=== PATIENT | male | born 1950 | race Two or more races ===

== ENCOUNTER → 2016-09-05 | Outpatient (CLI) | payer MEDICARE, OTHER ==
[~2016-09-05] MED LIST: ASPIRIN-LOW81 MG ORAL; CARAFATE1 G1 ORAL; DOXAZOSIN MESYLA1 MG ORAL; FLUTICASONE PRO16 G1 NASAL; LIPITOR20 MG ORAL; LISINOPRIL20 MG ORAL; LORATADINE5 MG/5 M4 PO; METOPROLOL SUC100 MG ORAL; MONTELUKAST SOD10 MG ORAL; NAPROXEN500 M2 ORAL; NORVASC10 MG ORAL; SPIRIVA18 MCG INH; TRIAMTERENE-HC1 EAC7 ORAL; TRIBENZOR 40-11 EAC1 ORAL; UNKNOWN BP MED; VENTOLIN HFA18 GM INH; VITAMIN D250000 UNI1 ORAL; vit d
[2016-09-05 16:37] VITALS: BP 124/63
--- NOTE | 2016-09-05 21:38 | Consultation ---
DATE OF CONSULTATION: 09/05/2016 CHIEF COMPLAINT: Anemia stool OB positive. HISTORY OF PRESENT ILLNESS: A pleasant 66-year-old [place]an male with a history of asthma, hypertension, and hypercholesterolemia who was referred to us for evaluation of anemia and stool OB positive. PAST MEDICAL HISTORY: 1. Asthma 2. Hypoglycemia. PAST SURGICAL HISTORY: Appendectomy and hernia repair. MEDICATIONS: Please see medication reconciliation list. FAMILY HISTORY: Noncontributory. SOCIAL HISTORY: The patient smokes four cigarettes a day. The patient with drinks socially. No IV drug abuse. ALLERGIES: No known drug allergy. MEDICATIONS: Please see medication reconciliation list. PHYSICAL EXAMINATION: VITAL SIGNS: Temperature 97.9, pulse is 66, respirations 20, and blood pressure is 124/63. HEENT: Normocephalic and atraumatic. Sclerae anicteric. NECK: Supple. No evidence of lymphadenopathy. CARDIOVASCULAR: Regular rate and rhythm. Plus S1 and S2. LUNGS: Clear to auscultation bilaterally. ABDOMEN: Positive bowel sounds. Soft and nontender. No rebound. No guarding. No peritoneal sign. EXTREMITIES: No cyanosis. No clubbing. No edema. LABORATORY DATA: Hemoglobin was around 11. ASSESSMENT AND PLAN: This is a 66-year-old male with a 10-pound weight loss and anemia stool OB positive. No prior history of colonoscopy for last 10 years. We will plan to do endoscopy and colonoscopy. The patient was given a prep and instruction and we will schedule him in a week to 10 days. I want to thank, Dr. Bearden for this kind referral. Ru Carnes M.D. DR: OFE JOB#: [id number] CC:
== END | disposition home or self-care (01) ==
LOC: PAN 15:03
DX: D64.9 Anemia, unspecified (principal); J45.909 Unspecified asthma, uncomplicated; E16.2 Hypoglycemia, unspecified; Z90.89 Acquired absence of other organs; I10 Essential (primary) hypertension; F17.210 Nicotine dependence, cigarettes, uncomplicated
CPT/HCPCS: 99201

== ENCOUNTER → 2016-09-20 | Day surgery (SDC) | payer MEDICARE, MEDICAID ==
[2016-09-20] VITALS (7 sets, daily range): BP systolic 94–160; BP diastolic 50–76
[~2016-09-20] VITALS: Ht 182.9 cm; Wt 66.2 kg
[~2016-09-20] MED LIST changes: +Alfentanil 2ml Inj ONE; +Atropine Inj 1mg/10ml Syr IV PRN; +DiphenhydrAMINE 50mg/ml Inj IVP PRN; +Hydromorphone 0.5mg/0.5ml inj IVP PRN; +Ketorolac 30mg Inj IV PRN; +Ketorolac 60mg Inj IV PRN; +LORazepam Inj 2mg/ml 1ml IV PRN; +LR 1000ml 1,000 ML IVLG SCH; +Labetalol 5mg/ml 20ml vial IV PRN; +Meperidine 25mg/ml Inj IV PRN; +Metoclopramide 10mg/2ml Inj IVP PRN; +Midazolam 2mg/2ml Inj IVP PRN; +Norco 5mg/325mg tab ORAL PRN; +Norco 7.5mg/325mg tab ORAL PRN; +Oxycodone/Acetaminophen 5-325 ORAL PRN; +fentaNYL 100 mcg/2 mL IV PRN
--- NOTE | 2016-09-20 08:48 | Short Stay Surgery H&P ---
History of Present Illness History of Present Illness Chief Complaint see recent dictation HPI Jameson Alvarez is a 66 year old male who was admitted on for Anemia,Weight Loss Patient History Allergies: Coded Allergies: NO KNOWN ALLERGIES (Verified Allergy, 05/14/13) PAST MEDICAL HISTORY: Past Surgeries: Social History: Medication History Scheduled Albuterol Sulfate (Ventolin Hfa), 2 PUFFS INH EVERY 6 HOURS, (Reported) Aspirin (Aspirin EC), 81 MG ORAL DAILY, (Reported) Atorvastatin Calcium* (Lipitor*), 20 MG ORAL BEDTIME, (Reported) Doxazosin Mesylate* (Doxazosin Mesylate*), 1 MG ORAL QHS, (Reported) Ergocalciferol (Vitamin D2)* (Vitamin D*), 50,000 UNIT ORAL ONCE A WEEK, ( Reported) Fluticasone Propionate* (Fluticasone Propionate*), 2 SPRAY NASAL BID, (Reported) Metoprolol Succinate* (Metoprolol Succinate*), 100 MG ORAL DAILY, (Reported) Montelukast Sodium* (Montelukast Sodium*), 10 MG ORAL DAILY, (Reported) Olmesartan Med/Amlodipine/Hctz 40-10-25MG (Tribenzor 40-10-25 Mg Tablet), 1 TAB ORAL DAILY, (Reported) Tiotropium [place]* (Spiriva*), 2 PUFF INH DAILY, (Reported) Discontinued Medications Loratadine (Loratadine), 10 MG PO DAILY, (Reported) Discontinued Reason: Pt stopped taking med Physical Exam Vital Signs Last Vital Signs Date Time Temp Pulse Resp B/P Pulse Ox O2 Delivery O2 Flow Rate FiO2 09/20/16 07:35 98.1 55 16 146/69 97 Room Air Plan Attestation Are the patient's medical conditions optimized for surgery? CODY GARCIA Sep 20, 2016 08:48
--- NOTE | 2016-09-20 08:48 | Pre-Procedure Note/Attestation ---
Pre-Procedure Note/Attestation Complete Prior to Procedure Planned Procedure: not applicable Procedure Narrative: egd/colon Indications for Procedure Pre-Operative Diagnosis: wt loss Attestation I attest that I discussed the nature of the procedure; its benefits; risks and complications; and alternatives (and the risks and benefits of such alternatives ), prior to the procedure, with the patient (or the patient's legal business representative). I attest that, if there was a reasonable possibility of needing a blood transfusion, the patient (or the patient's legal business representative) was given the [facility] standardized written summary, pursuant to the [place] Blood Safety Act ([place] Health and Safety Code # 1645, as amended). I attest that I re-evaluated the patient just prior to the surgery and that there has been no change in the patient's H&P, except as documented below: CODY GARCIA Sep 20, 2016 08:48
--- NOTE | 2016-09-20 08:53 | Anethesia Preoperative Eval ---
Anesthesia Pre-op PMH/ROS General Date of Evaluation: Sep 20, 2016 Time of Evaluation: 08:44 Anesthesiologist: Avtar ASA Score: ASA 3 Mallampati Score Class I : Soft palate, uvula, fauces, pillars visible Class II: Soft palate, uvula, fauces visible Class III: Soft palate, base of uvula visible Class IV: Only hard plate visible Mallampati Classification: Class III Surgeon: Deyvi Diagnosis: Abd Pain Surgical Procedure: EGD/Colonoscopy Anesthesia History: none Social History: current smoker Family History: no anesthesia problems Allergies: Coded Allergies: NO KNOWN ALLERGIES (Verified Allergy, 05/14/13) Medications: see eMAR Past Medical History Cardiovascular: Reports: CAD, HTN, other - HL Pulmonary: Reports: COPD, asthma PSxH Narrative: Hernia Repair Anesthesia Pre-op Phys. Exam Physician Exam Last Vital Signs Date Time Temp Pulse Resp B/P Pulse Ox O2 Delivery O2 Flow Rate FiO2 09/20/16 07:35 98.1 55 16 146/69 97 Room Air Constitutional: NAD Neurologic: CN 2-12 intact Cardiovascular: RRR Respiratory: CTA Gastrointestinal: S/NT/ND Airway Exam Mallampati Score: Class III MO: limited ROM: limited Teeth: intact Anesthesia Pre-op A/P Risk Assessment & Plan Assessment: ASA 3 Plan: GA Status Change Before Surgery: Roddy Morin MD Sep 20, 2016 08:53
--- NOTE | 2016-09-20 09:14 | Immediate Post-Op Evaluation ---
Immediate Post-Op Evalulation Immediate Post-Op Evalulation Procedure: EGD/Colonoscopy Date of Evaluation: Sep 20, 2016 Time of Evaluation: 09:42 IV Fluids: 500 Blood Products: 0 Estimated Blood Loss: 1 Urinary Output: 0 Blood Pressure Systolic: 94 Blood Pressure Diastolic: 50 Pulse Rate: 50 Respiratory Rate: 16 O2 Sat by Pulse Oximetry: 99 Temperature (Fahrenheit): 97.4 Pain Score (1-10): 1 Nausea: No Vomiting: No Complications 0 Patient Status: awake, reacts, patent, none Hydration Status: adequate Roddy Nova MD Sep 20, 2016 09:14
--- NOTE | 2016-09-20 09:15 | 48 Hour Post Anesthesia Eval ---
Post Anesthesia Evaluation Procedure: EGD/Colonoscopy Date of Evaluation: Sep 20, 2016 Time of Evaluation: 11:54 Blood Pressure Systolic: 134 0: 78 Pulse Rate: 61 Respiratory Rate: 18 Temperature (Fahrenheit): 98.4 O2 Sat by Pulse Oximetry: 96 Airway: patent Nausea: No Vomiting: No Pain Intensity: 1 Hydration Status: adequate Cardiopulmonary Status: Stable Mental Status/LOC: patient returned to baseline Follow-up Care/Observations: 0 Post-Anesthesia Complications: 0 Follow-up care needed: ready to discharge Roddy Nova MD Sep 20, 2016 09:15
--- NOTE | 2016-09-20 09:32 | Endoscopy Procedure Note ---
Endoscopy Procedure Note Indication for Procedure: anemia, stool ob positive Procedures Performed: EGD, colonoscopy Operative Findings/Diagnosis: 3 polyps Specimen: yes Pt Tolerated Procedure Well: Yes Estimated Blood Loss: none Anesthesiologist: maccay Anesthesia: MAC Implant(s) used?: No 50 yrs or older w/o bx or poly: No 10yrs. F/U not recommended: Yes If not recommended, why?: Above average risk 10 yrs. F/U needed: Yes 18 years or older w/prev. colo: No CODY GARCIA Sep 20, 2016 09:32
--- NOTE | 2016-09-20 18:18 | Procedure Note ---
DATE OF PROCEDURE: 09/20/2016 SURGEON: Ru Carnes M.D. REFERRING PHYSICIAN: . PROCEDURE: Upper endoscopy with biopsy and colonoscopy with biopsy. ANESTHESIOLOGIST: Roddy Nova M.D. INSTRUMENT: Olympus adult flexible upper endoscope and colonoscope. INDICATIONS: 1. Anemia. 2. Stool OB positive. 3. Screening colonoscopy. REASON FOR PROCEDURE: The procedure, risks, benefits, and possible consequences, including hemorrhage, aspiration, perforation and infection, and alternative treatments, were explained to the patient/legal guardian by Dr. Ru Carnes and the patient/legal guardian understood and accepted these risks. DESCRIPTION OF PROCEDURE: After informed consent was obtained and the patient was adequately sedated, Olympus upper endoscope was advanced from the mouth into the second portion of the duodenum and retroflexion was performed in the stomach. The patient had diffuse gastritis. Random biopsy from antrum was obtained to rule out H. pylori infection, otherwise, the rest of the upper endoscopic examination is grossly within normal limits. The patient also had mild duodenitis. At this time, the upper endoscope was retrieved and colonoscopy was started. First rectal exam was performed, which shows positive for internal hemorrhoids. Then, the scope was advanced from rectum into the cecum documented by appendiceal orifice, ileocecal valve, and right upper quadrant palpation. Quality of prep was good. The patient had three diminutive polyps, one in the rectum, one in the sigmoid, and one in the transverse colon, all removed with the cold biopsy forceps technique. There was one or two diverticula throughout the colon. Retroflexion of rectum showed evidence of internal hemorrhoids. The patient tolerated the procedure without any complication. SUMMARY OF FINDINGS: 1. Inlet patch in the proximal esophagus. 2. Gastritis, status post biopsy. 3. Mild duodenitis. 4. Internal hemorrhoids. 5. Three colonic polyps removed. 6. Scattered diverticulosis. RECOMMENDATIONS: Follow up biopsy results and treat accordingly. I want to thank, , for this kind referral. Ru Carnes M.D. DR: OBDULIO JOB#: [id number] CC:
--- NOTE | 2016-09-25 16:23 | Cardiology Report ---
APPROVED REPORT EKG Measurement Heart [id number] [id number] [id number] [id number] Sinus bradycardia Left axis deviation Minimal voltage criteria for LVH, may be normal variant Abnormal ECG
== END | disposition home or self-care (01) ==
LOC: GAS 07:25
DX: Z12.11 Encounter for screening for malignant neoplasm of colon (principal); K62.1 Rectal polyp; D12.3 Benign neoplasm of transverse colon; D12.5 Benign neoplasm of sigmoid colon; D64.9 Anemia, unspecified; R19.5 Other fecal abnormalities; K29.50 Unspecified chronic gastritis without bleeding; K29.80 Duodenitis without bleeding; I25.10 Atherosclerotic heart disease of native coronary artery without angina pectoris; I10 Essential (primary) hypertension; E78.5 Hyperlipidemia, unspecified; J44.9 Chronic obstructive pulmonary disease, unspecified; F17.200 Nicotine dependence, unspecified, uncomplicated; Z79.82 Long term (current) use of aspirin
CPT/HCPCS: 43239; 45380; 93005; J3490; 94003; 94150

== ENCOUNTER → 2016-10-10 | Outpatient (CLI) | payer MEDICARE, MEDICAID ==
[~2016-10-10] MED LIST changes: -Alfentanil 2ml Inj ONE; -Atropine Inj 1mg/10ml Syr IV PRN; -DiphenhydrAMINE 50mg/ml Inj IVP PRN; -Hydromorphone 0.5mg/0.5ml inj IVP PRN; -Ketorolac 30mg Inj IV PRN; -Ketorolac 60mg Inj IV PRN; -LORazepam Inj 2mg/ml 1ml IV PRN; -LR 1000ml 1,000 ML IVLG SCH; -Labetalol 5mg/ml 20ml vial IV PRN; -Meperidine 25mg/ml Inj IV PRN; -Metoclopramide 10mg/2ml Inj IVP PRN; -Midazolam 2mg/2ml Inj IVP PRN; -Norco 5mg/325mg tab ORAL PRN; -Norco 7.5mg/325mg tab ORAL PRN; -Oxycodone/Acetaminophen 5-325 ORAL PRN; -fentaNYL 100 mcg/2 mL IV PRN
[2016-10-10 15:28] VITALS: BP 141/70
--- NOTE | 2016-10-10 16:05 | GI Progress Note ---
Assessment/Plan Problems: (1) Anemia ICD Codes: D64.9 - Anemia, unspecified SNOMED: 138246719 (2) Colonic polyp ICD Codes: K63.5 - Polyp of colon SNOMED: 57238964 (3) Encounter for diagnostic endoscopy ICD Codes: Z01.818 - Encounter for other preprocedural examination SNOMED: 918656687, 594647423 (4) Gastritis ICD Codes: K29.70 - Gastritis, unspecified, without bleeding SNOMED: 1145006 (5) Hemorrhoids ICD Codes: K64.9 - Unspecified hemorrhoids SNOMED: 21897283 Status: stable Status Narrative Seen with Dr. Carnes. Assessment/Plan EGD/colonoscopy reviewed with patient. SBCE scheduled for 10/17/16. - CLD + [employer] prep instructions given. fu biopsies >> unremarkable Subjective Subjective weight loss Objective Last 24 Hour Vital Signs Date Time Temp Pulse Resp B/P Pulse Ox O2 Delivery O2 Flow Rate FiO2 10/10/16 15:28 98.3 60 141/70 General Appearance: no apparent distress, alert Cardiovascular: normal rate Respiratory/Chest: normal breath sounds, no respiratory distress Abdominal Exam: normal bowel sounds, non tender, soft Extremities: normal range of motion Objective Endoscopy Procedure Note Indication for Procedure: anemia, stool ob positive Procedures Performed: EGD, colonoscopy Operative Findings/Diagnosis: 3 polyps CODY CARNES - Sep 20, 2016 09:32 Diane Rg N.P. Oct 10, 2016 16:05
== END | disposition home or self-care (01) ==
LOC: PAN 15:05
DX: Z01.818 Encounter for other preprocedural examination (principal); D64.9 Anemia, unspecified; K63.5 Polyp of colon; K29.70 Gastritis, unspecified, without bleeding; K64.9 Unspecified hemorrhoids; R63.4 Abnormal weight loss
CPT/HCPCS: 99212

== ENCOUNTER 2017-06-02 12:53 | Outpatient (CLI) | payer MEDICARE, MEDICAID ==
--- NOTE | 2017-06-02 13:26 | GI Progress Note ---
Assessment/Plan Problems: (1) Esophageal thickening ICD Codes: K22.8 - Other specified diseases of esophagus SNOMED: 64500825 (2) Encounter for diagnostic endoscopy ICD Codes: Z01.818 - Encounter for other preprocedural examination SNOMED: 334534314, 877934501 (3) Anemia ICD Codes: D64.9 - Anemia, unspecified SNOMED: 866391216 (4) Gastritis ICD Codes: K29.70 - Gastritis, unspecified, without bleeding SNOMED: 8152600 Status: stable Status Narrative Seen with Dr. Carnes. Assessment/Plan H. Pylori Negative Gastritis colonic polyp x 3 CT >> esophageal wall thickening EGD scheduled 06/06/17. - NPO @ [facility] day prior procedure explained. Subjective Gastrointestinal/Abdominal: Reports: abdominal pain Objective T 98.1 BP 152/71 P 62 94 RA General Appearance: WD/WN, no apparent distress, alert Cardiovascular: normal rate Respiratory/Chest: normal breath sounds, no respiratory distress Abdominal Exam: normal bowel sounds, non tender, soft Extremities: normal range of motion, non-tender Diane Rg N.PUsama Jun 02, 2017 13:26
[2017-06-02 15:11] VITALS: BP 152/71
== END 2017-06-02 13:25 | disposition home or self-care (01) ==
LOC: PAN 12:53
DX: Z01.818 Encounter for other preprocedural examination (principal); K22.8 Other specified diseases of esophagus; D64.9 Anemia, unspecified; K29.70 Gastritis, unspecified, without bleeding
CPT/HCPCS: 99212

== ENCOUNTER 2017-06-06 07:35 | Day surgery (SDC) | payer MEDICARE, OTHER ==
[2017-06-06] VITALS (7 sets, daily range): BP systolic 132–151; BP diastolic 64–77
[~2017-06-06] VITALS: Ht 167.6 cm; Wt 70.8 kg
--- NOTE | 2017-06-06 07:00 | Anethesia Preoperative Eval ---
Anesthesia Pre-op PMH/ROS General Date of Evaluation: Jun 06, 2017 Time of Evaluation: 08:53 Anesthesiologist: alfonso ASA Score: ASA 3 Mallampati Score Class I : Soft palate, uvula, fauces, pillars visible Class II: Soft palate, uvula, fauces visible Class III: Soft palate, base of uvula visible Class IV: Only hard plate visible Mallampati Classification: Class II Surgeon: tenisha Diagnosis: gerd, gastritis Surgical Procedure: egd Anesthesia History: none Social History: current smoker, alcohol use Family History: no anesthesia problems Allergies: Coded Allergies: NO KNOWN ALLERGIES (Verified Allergy, 05/14/13) Medications: see eMAR Past Medical History Cardiovascular: Reports: HTN, other - hypercholesterolemia Pulmonary: Reports: asthma Gastrointestinal/Genitourinary: Reports: GERD, other - kidney stones Hematology/Immune: Reports: anemia Musculoskeletal/Integumentary: Reports: other - right shoulder internal derangement Anesthesia Pre-op Phys. Exam Physician Exam Last Vital Signs Date Time Temp Pulse Resp B/P (MAP) Pulse Ox O2 Delivery O2 Flow Rate FiO2 06/06/17 08:17 98.1 65 20 149/66 97 Room Air Constitutional: NAD Neurologic: CN 2-12 intact Cardiovascular: RRR Respiratory: CTA Gastrointestinal: S/NT/ND Airway Exam Mallampati Score: Class II MO: full Neck: supple TMD: 2fb ROM: limited Anesthesia Pre-op A/P Labs Labs Test 06/06/17 08:30 White Blood Count 7.6 K/UL (4.8-10.8) Red Blood Count 3.50 M/UL (4.70-6.10) Hemoglobin 11.8 G/DL (14.2-18.0) Hematocrit 35.5 % (42.0-52.0) Mean Corpuscular Volume 102 FL (80-99) Mean Corpuscular Hemoglobin 33.6 PG (27.0-31.0) Mean Corpuscular Hemoglobin Concent 33.1 G/DL (32.0-36.0) Red Cell Distribution Width 11.8 % (11.6-14.8) Platelet Count 236 K/UL (150-450) Mean Platelet Volume 8.5 FL (6.5-10.1) Neutrophils (%) (Auto) 58.1 % (45.0-75.0) Lymphocytes (%) (Auto) 26.3 % (20.0-45.0) Monocytes (%) (Auto) 8.7 % (1.0-10.0) Eosinophils (%) (Auto) 5.5 % (0.0-3.0) Basophils (%) (Auto) 1.4 % (0.0-2.0) Sodium Level 139 MMOL/L (136-145) Potassium Level 3.6 MMOL/L (3.5-5.1) Chloride Level 103 MMOL/L (98-107) Carbon Dioxide Level 30 MMOL/L (21-32) Anion Gap 6 mmol/L (5-15) Blood Urea Nitrogen 18 mg/dL (7-18) Creatinine 0.9 MG/DL (0.55-1.30) Estimat Glomerular Filtration Rate > 60 mL/min (>60) Glucose Level 105 MG/DL (74-106) Calcium Level 8.2 MG/DL (8.5-10.1) Iron Level 42 ug/dL (50-175) Total Iron Binding Capacity 272 ug/dL (250-450) Percent Iron Saturation 15 % (15-50) Unsaturated Iron Binding 230 ug/dL (112-346) Total Bilirubin 0.3 MG/DL (0.2-1.0) Aspartate Amino Transf (AST/SGOT) 15 U/L (15-37) Alanine Aminotransferase (ALT/SGPT) 16 U/L (12-78) Alkaline Phosphatase 59 U/L (46-116) Total Protein 7.1 G/DL (6.4-8.2) Albumin 3.4 G/DL (3.4-5.0) Globulin 3.7 g/dL Albumin/Globulin Ratio 0.9 (1.0-2.7) Studies Pre-op Studies: EKG - sinus bradycardia with premature atrial complexes Risk Assessment & Plan Assessment: asa3 Plan: mac Status Change Before Surgery: No Pre-Antibiotics Drug: LEATHA Alvarez Jun 06, 2017 07:00
--- NOTE | 2017-06-06 08:41 | Pre-Procedure Note/Attestation ---
Pre-Procedure Note/Attestation Complete Prior to Procedure Planned Procedure: not applicable Procedure Narrative: egd Indications for Procedure Pre-Operative Diagnosis: distal esophageal wall thickening Attestation I attest that I discussed the nature of the procedure; its benefits; risks and complications; and alternatives (and the risks and benefits of such alternatives ), prior to the procedure, with the patient (or the patient's legal customer solutions representative). I attest that, if there was a reasonable possibility of needing a blood transfusion, the patient (or the patient's legal customer solutions representative) was given the [facility] standardized written summary, pursuant to the [place] Blood Safety Act ([place] Health and Safety Code # 1645, as amended). I attest that I re-evaluated the patient just prior to the surgery and that there has been no change in the patient's H&P, except as documented below: CODY GARCIA Jun 06, 2017 08:41
--- NOTE | 2017-06-06 08:41 | Short Stay Surgery H&P ---
History of Present Illness History of Present Illness Chief Complaint see recent hospital note HPI Jameson Alvarez is a 67 year old male who was admitted on for GERD Patient History Allergies: Coded Allergies: NO KNOWN ALLERGIES (Verified Allergy, 05/14/13) PAST MEDICAL HISTORY: Past Surgeries: Social History: Medication History Scheduled Albuterol Sulfate (Ventolin Hfa), 2 PUFFS INH EVERY 6 HOURS, (Reported) Aspirin (Aspirin EC), 81 MG ORAL DAILY, (Reported) Atorvastatin Calcium* (Lipitor*), 20 MG ORAL BEDTIME, (Reported) Doxazosin Mesylate* (Doxazosin Mesylate*), 1 MG ORAL QHS, (Reported) Ergocalciferol (Vitamin D2)* (Vitamin D*), 50,000 UNIT ORAL ONCE A WEEK, ( Reported) Metoprolol Succinate* (Metoprolol Succinate*), 100 MG ORAL DAILY, (Reported) Montelukast Sodium* (Montelukast Sodium*), 10 MG ORAL DAILY, (Reported) Olmesartan Med/Amlodipine/Hctz 40-10-25MG (Tribenzor 40-10-25 Mg Tablet), 1 TAB ORAL DAILY, (Reported) Tiotropium [place]* (Spiriva*), 2 PUFF INH DAILY, (Reported) Discontinued Medications Fluticasone Propionate* (Fluticasone Propionate*), 2 SPRAY NASAL BID, (Reported) Discontinued Reason: Pt stopped taking med Physical Exam Vital Signs Last Vital Signs Date Time Temp Pulse Resp B/P (MAP) Pulse Ox O2 Delivery O2 Flow Rate FiO2 06/06/17 08:17 98.1 65 20 149/66 97 Room Air Labs Laboratory Tests Test 06/06/17 08:30 White Blood Count Pending Red Blood Count Pending Hemoglobin Pending Hematocrit Pending Mean Corpuscular Volume Pending Mean Corpuscular Hemoglobin Pending Mean Corpuscular Hemoglobin Concent Pending Red Cell Distribution Width Pending Platelet Count Pending Mean Platelet Volume Pending Neutrophils (%) (Auto) Pending Lymphocytes (%) (Auto) Pending Monocytes (%) (Auto) Pending Eosinophils (%) (Auto) Pending Basophils (%) (Auto) Pending Sodium Level Pending Potassium Level Pending Chloride Level Pending Carbon Dioxide Level Pending Blood Urea Nitrogen Pending Creatinine Pending Estimat Glomerular Filtration Rate Pending Glucose Level Pending Calcium Level Pending Iron Level Pending Unsaturated Iron Binding Pending Total Bilirubin Pending Aspartate Amino Transf (AST/SGOT) Pending Alanine Aminotransferase (ALT/SGPT) Pending Alkaline Phosphatase Pending Total Protein Pending Albumin Pending Globulin Pending Plan Attestation Are the patient's medical conditions optimized for surgery? CODY GARCIA Jun 06, 2017 08:41
[2017-06-06 08:50] LABS: BASOPHILS % (AUTO) 1.4 % (0.0-2.0); EOSINOPHILS % (AUTO) 5.5 % (0.0-3.0); LYMPHOCYTES % (AUTO) 26.3 % (20.0-45.0); MEAN CORPUSCULAR HEMOGLOBIN 33.6 PG (27.0-31.0); MEAN CORPUSCULAR HGB CONC 33.1 G/DL (32.0-36.0); MEAN CORPUSCULAR VOLUME 102 FL (80-99); MEAN PLATELET VOLUME 8.5 FL (6.5-10.1); MONOCYTES % (AUTO) 8.7 % (1.0-10.0); NEUTROPHILS % (AUTO) 58.1 % (45.0-75.0); PLATELET COUNT 236 K/UL (150-450); RED CELL DISTRIBUTION WIDTH 11.8 % (11.6-14.8); WHITE BLOOD COUNT 7.6 K/UL (4.8-10.8)
[2017-06-06] MEDS ORDERED: Atropine Inj 1mg/10ml Syr IV PRN (09:00)
[2017-06-06] MEDS ORDERED: fentaNYL 100 mcg/2 mL IV PRN (09:00)
[2017-06-06] MEDS ORDERED: Propofol 200mg/20ml IV ONE (09:00)
[2017-06-06] MEDS ORDERED: DiphenhydrAMINE 50mg/ml Inj IVP PRN (09:00)
[2017-06-06] MEDS ORDERED: Midazolam 2mg/2ml Inj IVP PRN (09:00)
[2017-06-06] MEDS ORDERED: Lidocaine 1% MPF 10mg/ml 5ml ONE (09:00)
[2017-06-06 09:01] LABS: ALANINE AMINOTRANSFERASE 16 U/L (12-78); ALBUMIN/GLOBULIN RATIO 0.9 (1.0-2.7); ANION GAP 6 mmol/L (5-15); ASPARTATE AMINO TRANSFERASE 15 U/L (15-37); CALCIUM 8.2 MG/DL (8.5-10.1); CARBON DIOXIDE 30 MMOL/L (21-32); CHLORIDE 103 MMOL/L (98-107); CREATININE 0.9 MG/DL (0.55-1.30); GLOMERULAR FILTRATION RATE > 60 mL/min (>60); POTASSIUM 3.6 MMOL/L (3.5-5.1); SODIUM 139 MMOL/L (136-145); TOTAL PROTEIN 7.1 G/DL (6.4-8.2)
--- NOTE | 2017-06-06 09:13 | Endoscopy Procedure Note ---
Endoscopy Procedure Note Indication for Procedure: esophagitis Procedures Performed: EGD Operative Findings/Diagnosis: gastritis Specimen: yes Pt Tolerated Procedure Well: Yes Estimated Blood Loss: none Anesthesiologist: cora Anesthesia: general - cora, MAC Implant(s) used?: No 50 yrs or older w/o bx or poly: Not Applicable 10yrs. F/U not recommended: Not Applicable CODY GARCIA Jun 06, 2017 09:13
[2017-06-06 09:30] LABS: IRON 42 ug/dL (50-175); TOTAL IRON BINDING CAPACITY 272 ug/dL (250-450)
--- NOTE | 2017-06-06 09:37 | Immediate Post-Op Evaluation ---
Immediate Post-Op Evalulation Immediate Post-Op Evalulation Procedure: egd Date of Evaluation: Jun 06, 2017 Time of Evaluation: 09:34 IV Fluids: 250ml 0.9ns Blood Products: none Estimated Blood Loss: negligible Blood Pressure Systolic: 142 Blood Pressure Diastolic: 64 Pulse Rate: 52 Respiratory Rate: 18 O2 Sat by Pulse Oximetry: 100 Temperature (Fahrenheit): 97.8 Pain Score (1-10): 0 Nausea: No Vomiting: No Complications none Patient Status: awake, reacts, patent Hydration Status: adequate Drug: LEATHA Alvarez Jun 06, 2017 09:37
--- NOTE | 2017-06-06 09:38 | 48 Hour Post Anesthesia Eval ---
Post Anesthesia Evaluation Procedure: egd Date of Evaluation: Jun 06, 2017 Time of Evaluation: 09:38 Blood Pressure Systolic: 144 0: 66 Pulse Rate: 55 Respiratory Rate: 18 Temperature (Fahrenheit): 97.8 O2 Sat by Pulse Oximetry: 100 Nausea: No Vomiting: No Pain Intensity: 0 Hydration Status: adequate Cardiopulmonary Status: stable Mental Status/LOC: patient returned to baseline Post-Anesthesia Complications: none Follow-up care needed: N/A LEATHA RODARTE Jun 06, 2017 09:38
--- NOTE | 2017-06-06 14:46 | Procedure Note ---
DATE OF PROCEDURE: 06/06/2017 SURGEON: Ru Carnes M.D. PROCEDURE: Upper endoscopy with biopsy. ANESTHESIA: Per Dr. Diaz. INSTRUMENT: Olympus adult flexible upper endoscope. INDICATION: Distal esophageal wall thickening seen on the CT scan. The procedure, risks, benefits, and possible consequences, including hemorrhage, aspiration, perforation and infection, and alternative treatments, were explained to the patient/legal guardian by Dr. Ru Carnes and the patient/legal guardian understood and accepted these risks. DESCRIPTION OF PROCEDURE: After informed consent was obtained and the patient was adequately sedated, Olympus upper endoscope was advanced from mouth into the second portion of duodenum and retroflexion was performed in the stomach. As we passing this through the distal esophagus, there was a little bit difficult. We have kind of to gently push the scope through. So, it was not going down easily. There was evidence of edema of the lining of the distal esophagus without any obvious mucosal findings. The patient had evidence of small hiatal hernia without any obvious esophagitis. In the stomach, there was diffuse gastritis. Random biopsy from antrum was obtained to rule out H. pylori infection. Also we did a biopsy of the distal esophagus. The patient tolerated the procedure very well without any complication. SUMMARY FINDINGS: 1. Edema of the lower esophageal lining without any obvious esophagitis or mucosal findings, status post biopsy. 2. Small hiatal hernia. 3. Gastritis, status post biopsy. RECOMMENDATIONS: Follow up biopsy results and treat accordingly. Ru Carnes M.D. DR: WESTLEY JOB#: [id number] CC:
--- NOTE | 2017-06-08 15:13 | Cardiology Report ---
APPROVED REPORT EKG Measurement Heart [id number] [place] 140P44 [id number] [id number] Sinus bradycardia with marked sinus arrhythmia Otherwise normal ECG
== END 2017-06-06 11:10 | disposition home or self-care (01) ==
LOC: GAS 07:35
DX: K21.9 Gastro-esophageal reflux disease without esophagitis (principal); R60.0 Localized edema; K44.9 Diaphragmatic hernia without obstruction or gangrene; Z79.82 Long term (current) use of aspirin; I10 Essential (primary) hypertension; E78.00 Pure hypercholesterolemia, unspecified; Z87.442 Personal history of urinary calculi; F17.200 Nicotine dependence, unspecified, uncomplicated; R00.1 Bradycardia, unspecified
CPT/HCPCS: 36415; 43239; 80053; 82378; 83540; 83550; 85025; 93005; J2704; J3010; 94003; 94150

== ENCOUNTER 2017-06-24 09:06 | Outpatient (CLI) | payer MEDICARE, OTHER ==
--- NOTE | 2017-06-24 09:53 | GI Progress Note ---
Assessment/Plan Problems: (1) Gastritis ICD Codes: K29.70 - Gastritis, unspecified, without bleeding SNOMED: 7351095 (2) Anemia ICD Codes: D64.9 - Anemia, unspecified SNOMED: 538957536 (3) Encounter for diagnostic endoscopy ICD Codes: Z01.818 - Encounter for other preprocedural examination SNOMED: 875579696, 199546346 Status: stable Status Narrative Discussed with Dr. Carnes. Assessment/Plan SUMMARY FINDINGS: 1. Edema of the lower esophageal lining without any obvious esophagitis or mucosal findings, status post biopsy. 2. Small hiatal hernia. 3. Gastritis, status post biopsy. RECOMMENDATIONS: Follow up biopsy results and treat accordingly. >> H. Pylori negative, evidence of GERD PRN zantac refer to Hematology for macrocytosis RTC PRN Subjective Gastrointestinal/Abdominal: Reports: no symptoms Objective T 98.0 BP 124/71 P 64 94 RA General Appearance: WD/WN, no apparent distress, alert Cardiovascular: normal rate Respiratory/Chest: normal breath sounds, no respiratory distress Abdominal Exam: normal bowel sounds, non tender, soft Extremities: normal range of motion, non-tender Diane Rg N.PUsama Jun 24, 2017 09:53
[2017-06-24 10:00] VITALS: BP 124/71
== END 2017-06-24 09:40 | disposition home or self-care (01) ==
LOC: PAN 09:06
DX: K29.70 Gastritis, unspecified, without bleeding (principal); D64.9 Anemia, unspecified; R60.0 Localized edema; K44.9 Diaphragmatic hernia without obstruction or gangrene; K21.9 Gastro-esophageal reflux disease without esophagitis
CPT/HCPCS: 99212